=== PATIENT | female | born 1960 | race Caucasian/White ===

== ENCOUNTER 2016-11-04 18:46 | Emergency (ER) | payer OTHER ==
[2016-11-04 18:53] VITALS: BP 148/90; PULSE 85; RESP 16; TEMP 98.1; O2SAT 98
--- NOTE | 2016-11-04 18:58 | EDPHY ---
H & P Stated Complaint: Rash to body since yesterday, difficulty swollowing. Time Seen by Provider: 11/04/16 18:57 - Personal History Current Tetanus/Diphtheria Vaccine: Unsure Current Tetanus Diphtheria and Acellular Pertussis (TDAP): Unsure - Medical/Surgical History Hx Asthma: No Hx Chronic Respiratory Disease: No Hx Diabetes: No Hx Cardiac Disease: No Hx Renal Disease: No Hx Cirrhosis: No Hx Alcoholism: No Hx HIV/AIDS: No Hx Splenectomy or Spleen Trauma: No Other PMH: , L knee surgery, hypothyroid, R inguinal hernia repair. - Social History Smoking Status: Never smoked Constitutional: Initial Vital Signs Temperature (C) 36.7 C 11/04/16 18:48 Heart Rate 85 11/04/16 18:48 Respiratory Rate 16 11/04/16 18:48 Blood Pressure 148/90 H 11/04/16 18:48 O2 Sat (%) 98 11/04/16 18:48 O2 Delivery Mode Room Air Allergies/Adverse Reactions: iodine Allergy (Severe, Verified 11/04/16 18:54) Hives Home Medications: Medication Instructions Recorded Famotidine [Pepcid 20 MG (OTC)] 20 mg PO DAILY #5 tab 11/04/16 Synthroid 11/04/16 Zyrtec 11/04/16 predniSONE 40 mg PO DAILY #10 tab 11/04/16 Medical Decision Making ED Course/Re-evaluation: CHIEF COMPLAINT: Allergic reaction HISTORY OF PRESENT ILLNESS: This patient is a 56 year old female who presents to the Emergency Department complaining of diffuse hives and throat swelling that she attributes to an allergic reaction. She tells me that she woke up this morning with hives around her neck and below her breasts. Throughout the day, she began to experience mild dysphagia. She has been treating her symptoms with Benadryl but states that they have continued to progress. She grew up in [place] and had allergic reaction episodes throughout her childhood but she is unsure what instigates these episodes. She is returning home to [place] tomorrow. REVIEW OF SYSTEMS: A 10 point review of systems was performed and is negative with the exception of the elements mentioned in the history of present illness. PHYSICAL EXAM: HR 85, BP 148/90, O2 Sat 98%, RR 16. Temp noted General Appearance: Alert, well hydrated, appropriate, and non-toxic appearing. Head: Atraumatic without scalp tenderness or obvious injury Eyes: Pupils equal, round, reactive to light and accommodation, EOMI, no trauma , no injection. Ears: Clear bilaterally, no perforation, normal landmarks Nose: Atraumatic, no rhinorrhea, clear. Throat: Left posterior lateral tongue swelling, no lesions, normal tonsils, mucus membranes moist. No lip swelling.No uvula swelling. Neck: Supple, 2+ carotid upstroke, nontender, no lymphadenopathy. Respiratory: No retractions, no distress, no wheezes, and no accessory muscle use. Lungs are clear to auscultation bilaterally. Cardiovascular: Regular rate and rhythm, no murmurs, rubs, or gallops. Bilateral carotid, radial, dorsalis pedis, and posterior tibial pulses intact. Good capillary refill all extremities. Gastrointestinal: Abdomen is soft, nontender, non-distended, no masses, no rebound, no guarding, no peritoneal signs. Musculoskeletal: Normal active ROM of all extremities, atraumatic. Neurological: Alert, appropriate, and interactive. The patient has normal DTRs and non-focal cranial nerves, motor, sensory, and cerebellar exam. Skin: Diffuse urticaria, good turgor, no nodules on palpation. Past medical history: Allergic reactions, source unknown. Past surgical history: Non-contributory. Family history: Non-contributory. Social history: Daughter at bedside. Lives in [place], visiting [place]. DIFFERENTIAL DIAGNOSIS: The differential diagnosis included but was not limited to angioedema, anaphylaxis, anaphylactoid reaction, urticarial reaction, and other infectious causes for skin rash. MEDICAL DECISION MAKING: This patient is a 56 year old female with history of allergic reaction with unknown source when she lived here in [place]. She is visiting her daughter and reports diffuse urticaria and difficulty swallowing first presenting this morning without alleviation using Benadryl. On exam, she has no airway compromise, so will not proceed with EpiPen. Plan to treat with 60mg IV Prednisone, 40mg IV Pepcid and monitor here in the ED. The patient is discharged home with a referral to an masking machine operator and Prednisone and Pepcid to use as directed until her return home to [place]. She understands return to the ED precautions and will return home in good condition. Departure - Departure Disposition: Home, Routine, Self-Care Clinical Impression: Allergic reaction Qualifiers: Encounter type: initial encounter Qualified Code(s): T78.40XA - Allergy, unspecified, initial encounter Condition: Good Instructions: General Allergic Reaction (ED) Additional Instructions: 1. Follow-up with an masking machine operator in [place] in preparation for your next visit. We have referred you to Dr. Castano. 2. Take Prednisone and Pepcid as directed until your symptoms resolve entirely. 3. Return to the Emergency Department if you experience difficulty breathing, trouble swallowing or speaking, worsening rash, or other serious concerns. Referrals: Pete Castano MD [Medical Doctor] - As per Instructions Prescriptions: Famotidine [Pepcid 20 MG (OTC)] 20 mg PO DAILY #5 tab predniSONE 40 mg PO DAILY #10 tab
[2016-11-04] MEDS ORDERED: FAMOTIDINE 20 MG TAB PO ONE (19:03)
[2016-11-04] MEDS ORDERED: predniSONE 20 MG TAB PO ONE (19:03)
== END 2016-11-04 19:24 | disposition home or self-care (01) ==
DX: T78.40XA Allergy, unspecified, initial encounter (principal)